=== PATIENT | male | born 1955 | race Two or more races ===

== ENCOUNTER 2017-05-15 05:01 | Emergency (ER) | payer OTHER ==
[~2017-05-15] VITALS: Ht 172.7 cm; Wt 81.6 kg
[~2017-05-15 05:01] MED LIST: BECL8.7A6 INH; CIPR-262 PO; TAMS0.4C34 PO
[2017-05-15] MEDS ORDERED: LIDOCAINE 2% JEL UROJET 10 ML MM ONE ×2 (05:07→05:30)
--- NOTE | 2017-05-15 05:10 | NUR ---
to bed 2 ambulatory c/o urinary retention x1 day. pt aaox4 no acute distress noted, resp even and unlabored. er md at bedside to eval pt with orders received. will carry out orders.
--- NOTE | 2017-05-15 05:15 | NUR ---
f/c 16fr inserted, noted clear yellow urine approximately 700ml's. urine sample collected and sent to lab.
--- NOTE | 2017-05-15 05:22 | NUR ---
pt verbalize full relief of suprapubic pain.
--- NOTE | 2017-05-15 05:24 | NUR ---
blood drawn by carpenter helper maintenance.
[2017-05-15 05:36] LABS: BASOPHILS % (AUTO) 0.7 % (0.0-2.0); EOSINOPHILS # (AUTO) 0.3 /CMM (0.0-0.7); EOSINOPHILS % (AUTO) 4.4 % (0.0-6.0); HEMATOCRIT 48 % (39-51); HEMOGLOBIN 16.1 g/dL (13.5-17.5); LYMPHOCYTES # (AUTO) 2.9 /CMM (0.8-4.8); LYMPHOCYTES % (AUTO) 49.5 % (20.0-44.0); MEAN CORPUSCULAR HEMOGLOBIN 30 PG (26.0-33.0); MEAN CORPUSCULAR HGB CONC 33 g/dl (31.0-36.0); MEAN CORPUSCULAR VOLUME 90 fL (80-96); MONOCYTES # (AUTO) 0.4 /CMM (0.1-1.30); MONOCYTES % (AUTO) 6.8 % (2.0-12.0); NEUTROPHILS # (AUTO) 2.2 /CMM (1.8-8.9); NEUTROPHILS % (AUTO) 38.6 % (43.0-81.0); PLATELET COUNT (AUTO) 183 /CMM (150-450); RDW COEFFICIENT OF VARIATION 13.1 (11.5-15.0); RED BLOOD CELL COUNT(AUTO) 5.35 MIL/uL (4.5-6.0); WHITE BLOOD COUNT (AUTO) 5.8 K/uL (4.3-11.0)
[2017-05-15 05:37] LABS: APPEARANCE,URINE SL CLOUDY (CLEAR); BILIRUBIN,URINE NEGATIVE (NEGATIVE); BLOOD, URINE 1+ Ery/uL (NEGATIVE); COLOR,URINE YELLOW (YELLOW); KETONES,URINE NEGATIVE (NEGATIVE); LEUKOCYTE ESTERASE ,URINE NEGATIVE (NEGATIVE); NITRITE, URINE NEGATIVE (NEGATIVE); PH,URINE 6.5 (5.0-8.0); PROTEIN,URINE NEGATIVE (NEGATIVE); UGLUCOSE NEGATIVE (NEGATIVE); UROBILINOGEN,URINE 0.2 EU/dL (0.2)
[2017-05-15 05:49] LABS: CALCIUM, SERUM 8.6 mg/dL (8.5-10.1); CREATININE 0.9 mg/dL (0.6-1.3); POTASSIUM 4.3 mmol/L (3.5-5.1)
--- NOTE | 2017-05-15 06:02 | NUR ---
Patient discharged to home in stable condition. Written and verbal after care instructions given. Patient verbalizes understanding of instruction. leg bag applied per er md order. pt aaox4 no acute distress noted, resp even and unlabored.
[2017-05-15 06:03] VITALS: BP 131/89
[2017-05-15 06:47] LABS: BACTERIA,URINE None seen /HPF (None Seen); SQUAMOUS EPITHELIAL CELL,UR None Seen /HPF (None Seen); WBC,URINE NONE SEEN /HPF (0-3)
== END 2017-05-15 06:03 | disposition home or self-care (01) ==
LOC: ER 05:03
DX: R33.8 Other retention of urine (principal)
CPT/HCPCS: 36415; 51702; 80048; 81001; 85025; 99284; A4606; J3490; Z7610; 81000-TC

== ENCOUNTER 2022-11-20 20:19 | Emergency (ER) | payer OTHER ==
[~2022-11-20] VITALS: Ht 167.6 cm; Wt 79.8 kg
[2022-11-20 21:00] VITALS: BP 139/85
[2022-11-20] MEDS ORDERED: ALBUTEROL FS 2.5 MG/3 ML VIAL.NEB NEB ONE (21:30)
[2022-11-20] MEDS ORDERED: predniSONE 20 MG TABLET PO ONE (21:30)
[2022-11-20] MEDS ORDERED: IPRATROPIUM NEB FS 0.5 MG/2.5 ML AMPUL.NEB NEB ONE (21:30)
[2022-11-20] MEDS ORDERED: ALBUTEROL FS 2.5 MG/3 ML VIAL.NEB ONE (21:33)
[2022-11-20] MEDS ORDERED: IPRATROPIUM NEB FS 0.5 MG/2.5 ML AMPUL.NEB ONE (21:34)
--- NOTE | 2022-11-20 21:35 | NUR ---
RT AT PT'S BEDSIDE FOR BREATHING TX
[2022-11-20] MEDS ORDERED: predniSONE 20 MG TABLET ONE (21:39)
[2022-11-20] MEDS ORDERED: ALBU18HF2 INH (22:50)
[2022-11-20] MEDS ORDERED: PRED20TA PO (22:50)
--- NOTE | 2022-11-20 23:00 | NUR ---
Patient discharged to home in stable condition. Written and verbal after care instructions given. Patient verbalizes understanding of instruction.
== END 2022-11-20 23:00 | disposition home or self-care (01) ==
LOC: ER 20:22
DX: J45.901 Unspecified asthma with (acute) exacerbation (principal); J06.9 Acute upper respiratory infection, unspecified; Z79.899 Other long term (current) drug therapy
CPT/HCPCS: 99285; 71045; 94799; 94640 ×2; J7512